=== PATIENT | male | born 1985 | race Two or more races ===

== ENCOUNTER 2016-10-10 13:15 | Outpatient (CLI) | payer OTHER ==
[2016-10-10] MEDS ORDERED: IOTHALAMATE MEGLUMINE 50 ML VIAL IVP ONE (14:12)
[2016-10-10] MEDS ORDERED: BUFFERED LIDOCAINE 10 ML SYRINGE IU ONE (14:12)
[2016-10-10] MEDS ORDERED: GADOPENTETATE DIMEGLUMINE 5 ML VIAL IVP ONE (14:12)
== END 2016-10-10 13:16 | disposition home or self-care (01) ==
DX: M25.511 Pain in right shoulder (principal); M24.111 Other articular cartilage disorders, right shoulder; S43.491D Other sprain of right shoulder joint, subsequent encounter; S49.91XD Unspecified injury of right shoulder and upper arm, subsequent encounter
CPT/HCPCS: 23350; 73222; 77002; Q9961

== ENCOUNTER 2017-02-14 21:59 | Emergency (ER) | payer OTHER ==
[2017-02-14] MEDS ORDERED: LIDOCAINE 1%-EPI 1:100000 20 ML MDV ONE (22:23)
--- NOTE | 2017-02-14 22:32 | ED Physician Documentation ---
PD HPI LOWER EXT INJURY - Stated complaint Stated Complaint: RT LEG INJURY - Chief complaint Chief Complaint: Ext Problem - History obtained from History obtained from: Patient, Family - History of Present Illness PD HPI LOW EXT INJURY LOCATION: Right, Lower leg Type of injury: Blunt / blow, Laceration Where injury occurred: Home Timing - onset: How many minutes ago (30) Timing - details: Abrupt onset, Still present Improved by: Immobilization Worsened by: Moving, Palpating Similar symptoms before: Has not had sx before Recently seen: Not recently seen - Additional information Additional information: Patient is a 31 year old male with no significant past medical history who is presenting to the emergency department for right leg pain and laceration. Patient was moving a dog house across his yard when he stepped off the stoop and the weight of the dog house went down on his leg. Patient denied any head trauma at this time. Review of Systems Constitutional: denies: Fever, Chills Eyes: denies: Decreased vision Ears: denies: Ear pain, Drainage/discharge Nose: denies: Rhinorrhea / runny nose, Congestion GI: denies: Nausea, Vomiting Musculoskeletal: reports: Extremity pain, Joint pain, Extremity swelling, Joint swelling Neurologic: denies: Generalized weakness, Focal weakness, Numbness Immunocompromised: denies: Immunocompromised PD PAST MEDICAL HISTORY - Past Medical History Past Medical History: No Cardiovascular: None Respiratory: None Neuro: None Endocrine/Autoimmune: None GI: None : None HEENT: None Psych: None Musculoskeletal: None Derm: None - Past Surgical History Past Surgical History: No - Allergies Allergies/Adverse Reactions: Allergies Allergy/AdvReac Type Severity Reaction Status Date / Time No Known Drug Allergies Allergy Verified 02/14/17 22:08 - Social History Does the pt smoke?: No Smoking Status: Never smoker Does the pt drink ETOH?: No Does the pt have substance abuse?: No - Immunizations Immunizations are current?: Yes - POLST Patient has POLST: No PD ED PE NORMAL - Vitals Vital signs reviewed: Yes - General General: Alert and oriented X 3, No acute distress, Well developed/nourished - HEENT HEENT: Atraumatic, PERRL - Neck Neck: Supple, no meningeal sign - Cardiac Cardiac: RRR, No murmur, No rub - Respiratory Respiratory: No respiratory distress, Clear bilaterally - Abdomen Abdomen: Soft, Non tender, Non distended - Neuro Neuro: Alert and oriented X 3, No motor deficit, No sensory deficit, Normal speech - Psych Psych: Normal mood, Normal affect PD ED PE EXPANDED - Extremities Extremities: Right knee (tender to palpation), Right leg (2cm laceration on right medial lower leg) Results - Vitals Vitals: Vital Signs - 24 hr 02/14/17 02/14/17 22:01 23:25 Temperature 36.8 C Heart Rate 105 H 96 Respiratory 17 19 Rate Blood Pressure 135/88 H 139/62 H O2 Saturation 97 96 Oxygen O2 Source Room air - Rads (name of study) tib fib Radiology: Final report received, EMP read contemporaneously (no acute fracture or dislocation) right knee Radiology: Final report received, EMP read contemporaneously (no acute fracture or dislocation) Procedures - Laceration (location) right lower leg Length in cm: 3 Wound type: Linear Neurovascular status: Sensory intact, Vascular intact Anesthesia: Lidocaine 1% with epi Wound Preparation: Irrigated copiously NS Skin layer closure: Interrupted, Size #-0 - enter number (4), Sutures - enter # (4), Other (vicryl) Other: Patient tolerated well, No complications, Neurovascular intact, Tetanus UTD Complexity: Simple PD MEDICAL DECISION MAKING - ED course Complexity details: reviewed old records, reviewed results, re-evaluated patient , considered differential, d/w patient, d/w family ED course: Patient was seen and examined at bedside. Patient was sent for imaging. Patient's wound was repaired as described above. Patient required no further work up and was stable for discharge with outpatient follow up Departure - Departure Disposition: 01 Home, Self Care Clinical Impression: Laceration of leg not thigh Condition: Good Instructions: ED Laceration Sure Close Follow-Up: Jorge Murrieta MD [Primary Care Provider] - As Needed Comments: Your x-rays today were within normal limits. there was no acute fracture or dislocation. As for your laceration the sutures are dissolvable and will dissipate on their own. You should keep the area clean and dry. You can ice the area and take motrin or tylenol as needed for pain. You should monitor for signs of infection (increased redness, swelling, discharge) and follow up with your pmd for any of those signs.
[2017-02-14 23:26] VITALS: BP 139/62
--- NOTE | 2017-02-14 23:31 | XRAY Preliminary Report ---
Exam: XR Knee 4 View RT IMPRESSION: Negative knee radiography. [facility] SITE ID: [id number]
--- NOTE | 2017-02-14 23:32 | XRAY Preliminary Report ---
Exam: XR Tib/Fib RT IMPRESSION: Normal tibia/fibula radiography. [facility] SITE ID: [id number]
--- NOTE | 2017-02-14 23:34 | XRAY Report ---
EXAM: RIGHT KNEE RADIOGRAPHY EXAM DATE: 02/14/2017 10:53 PM. CLINICAL HISTORY: Tenderness and pain. COMPARISON: None. TECHNIQUE: 4 views. FINDINGS: Bones: No fractures. There are small bone islands within the knee. Joints: No effusion. No subluxations. Soft Tissues: No soft tissue swelling. IMPRESSION: Negative knee radiography. [facility] Referring Provider Line: [phone] SITE ID: [id number]
--- NOTE | 2017-02-14 23:35 | XRAY Report ---
EXAM: RIGHT TIBIA/FIBULA RADIOGRAPHY EXAM DATE: 02/14/2017 10:53 PM. CLINICAL HISTORY: Knee pain COMPARISON: None. TECHNIQUE: 2 views. FINDINGS: Bones: Normal. No fracture or bone lesion. Joints: The visualized knee and ankle joints are normal. No effusions. Soft Tissues: Normal. No soft tissue swelling. IMPRESSION: Normal tibia/fibula radiography. [facility] Referring Provider Line: [phone] SITE ID: [id number]
== END 2017-02-14 23:40 | disposition home or self-care (01) ==
LOC: ED 21:59
DX: S81.811A Laceration without foreign body, right lower leg, initial encounter (principal); M25.561 Pain in right knee; W22.8XXA Striking against or struck by other objects, initial encounter; Y93.89 Activity, other specified; Y92.009 Unspecified place in unspecified non-institutional (private) residence as the place of occurrence of the external cause
CPT/HCPCS: 12002; 99283

== ENCOUNTER 2018-03-24 13:55 | Outpatient (CLI) | payer OTHER ==
[2018-03-24] MEDS ORDERED: SINCALIDE 5 MCG VIAL ONE (14:53)
[2018-03-24] MEDS ORDERED: SINCALIDE 1.6 MCG in SODIUM CHLORIDE 0.9% 50 ML IV ONE (16:04)
--- NOTE | 2018-03-24 17:09 | Nuclear Medicine Report ---
Procedure Date: 03/24/2018 Accession Number: [id number] / [id number] Procedure: NM - Hepatobiliary HIDA w/ Rx CPT Code: FULL RESULT: EXAM: HEPATOBILIARY SCAN WITH CCK/KINEVAC ADMINISTRATION EXAM DATE: 03/24/2018 04:26 PM. CLINICAL HISTORY: UNSPECIFIED ABDOMINAL PAIN. COMPARISON: None. TECHNIQUE: Following the intravenous administration of 5.3 mCi of Tc99m Mebrofenin, a hepatobiliary scan was done centered on the liver and gallbladder in multiple sequential images and projections. Following the intravenous administration of 1.6 mcg of CCK/ Kinevac over the course of approximately 60 minutes, dynamic imaging was done and the gallbladder ejection fraction was calculated. FINDINGS: Normal extraction of tracer from the blood pool indicating normal hepatocellular function. The liver size and shape is grossly within normal limits. Appearance of tracer in the biliary tree as early as 5 minutes, within normal limits. Appearance of tracer in the gallbladder as early as 5 minutes, within normal limits, with good progression of filling throughout the remainder of the initial hour. Appearance of tracer in the small bowel immediately following CCK administration. With CCK administration, the gallbladder demonstrates an effective contraction. The gallbladder ejection fraction is calculated to be 52%, within the normal range (> 35%). No evidence of enteric reflux into the stomach. No significant collection of tracer remaining in the common bile duct by the end of the study. IMPRESSION: 1. No scintigraphic evidence of acute cholecystitis. 2. Patent common bile duct. 3. Gallbladder ejection fraction is in the normal range. 4. Mildly delayed biliary to bowel transit. This is a nonspecific finding that can be seen in a subset of normal patients, however a component of distal functional or mechanical obstruction is not excluded. [facility]
== END 2018-03-24 13:56 | disposition home or self-care (01) ==
LOC: DI 13:55
PROVIDERS: ATTEND Family Medicine
DX: R10.9 Unspecified abdominal pain (principal)
CPT/HCPCS: 78227; J7040